=== PATIENT | male | born 1950 | race Caucasian/White ===

== ENCOUNTER 2016-07-23 16:50 | Observation (INO) | payer MEDICARE, OTHER ==
[~2016-07-23] VITALS: Ht 170.2 cm; Wt 86.0 kg
--- NOTE | ~2016-07-23 | CO ---
ADMIT: 07/23/2016 RM/LOC: 506 [facility] MR#: [id number] [address] [address] ISH GARCIA [address] [place] [address] Consultation SEX: M AGE: 66 : 1950 DATE OF CONSULTATION: 07/24/2016 ATTENDING PHYSICIAN: Claudy Nava CONSULTING PHYSICIAN: Hank Cool MD ADDENDUM: This is an addendum to a consult note by Christian Horta. This is a pleasant patient, who is traveling back to [place] and had an episode of black tarry bowel movement. He is on Xarelto, has not really had any upper abdominal pain, has not had any hematemesis, but I was asked to see him for possible endoscopy. On exam, his abdomen is soft. It is nontender. ASSESSMENT: Anemia and melena, probable upper GI bleed. PLAN: I have recommended proceeding with EGD. I have gone through risks and benefits of this procedure. He understands and agrees to proceed. Hank Cool MD/ aly JOB #: [id number] CC: Claudy Nava, Attending Physician Claudy Nava, Family Physician
--- NOTE | 2016-07-24 12:39 | CO ---
ADMIT: 07/23/2016 RM/LOC: 506 [facility] MR#: [id number] 2620 [facility] [address] [place] [id number] ISH GARCIA [address] [place] [address] Consultation SEX: M AGE: 66 : 1950 DATE OF CONSULTATION: 07/24/2016 ATTENDING PHYSICIAN: Claudy Nava CONSULTING PHYSICIAN: Jassi Schulz MD REASON FOR CONSULTATION: Melenic stools. HISTORY OF PRESENT ILLNESS: Ish is a very pleasant 66-year-old male, who woke up yesterday morning and noticed very black loose stools. He denies ever having any prior events like this before. He does have some mild abdominal pain, more located in the epigastric region. He denies any nausea, vomiting, hematemesis, diarrhea, or constipation. He does have some lightheadedness when he goes from sitting to a standing position, but denies any shortness of breath or weakness. Of note, the patient does take Xarelto for AFib and has been taking Aleve for the last about 6 weeks for generalized arthralgias. PAST MEDICAL HISTORY: Significant for type 2 diabetes, AFib, hypertension, and neuropathy. PAST SURGICAL HISTORY: 1. No prior EGDs, last colonoscopy was about 6 years ago and they had noticed diverticulosis. 2. Carpal tunnel syndrome. 3. Left shoulder surgery. 4. Cataracts. 5. Lap missy. ALLERGIES: VICODIN. MEDICATIONS: Well documented in chart. FAMILY HISTORY: Noncontributory. SOCIAL HISTORY: The patient is an alcohol user, drinks about a glass or 2 of wine a day. He denies any tobacco or illicit drug use. REVIEW OF SYSTEMS: CONSTITUTIONAL: The patient denies any fever, chills, or night sweats. The rest of a comprehensive 10-point review of systems was performed and all other systems are negative. PHYSICAL EXAMINATION: GENERAL: The patient is in no acute distress. He is alert and oriented. HEENT: Head is normocephalic and atraumatic. EOMS are intact. Conjunctivae free of icterus, erythema, or pallor. Pinnae, free of deformities. Nose, midline. No tracheal deviation. NECK: Supple. SKIN: Negative for jaundice, clubbing, edema, pallor, or cyanosis. ADMIT: 07/23/2016 RM/LOC: 506 [facility] MR#: [id number] [address] [address] ISH GARCIA [address] [place] [address] Consultation SEX: M AGE: 66 : 1950 LUNGS: Normal respiratory effort. HEART: Distal pulses intact. Regular rate and rhythm. ABDOMEN: Soft, nondistended, mild tenderness in epigastric region. NEURO: Grossly intact. LABORATORY DATA: Hemoglobin is 8. ASSESSMENT: Upper gastrointestinal bleed. PLAN: The plan is to have the patient undergo EGD today, performed by Dr. Schulz or one of the other providers whoever is available 1st. I discussed the risks, alternatives, benefits, and complications of EGD with the patient to which he has agreement of this plan, had all of his questions answered and would like to proceed. I have him on surgery schedule and we will get his consent and hopefully get this done this morning. KEMAL Rosales / Jassi Schulz MD / aly JOB #: [id number] CC: Claudy Nava, Attending Physician Claudy Nava, Family Physician
--- NOTE | 2016-07-26 07:15 | HP ---
ADMIT: 07/23/2016 RM/LOC: 506 [facility] MR#: [id number] 2620 [facility] [address] [place] [id number] JO[address] [place] [address] History and Physical SEX: M AGE: 66 : 1950 DATE OF SERVICE: CHIEF COMPLAINT: Abdominal pain and melena. HISTORY OF PRESENT ILLNESS: The patient is a fantastic 66-year-old gentleman, who was traveling across country from [facility] back to their home in [place], who over the last day has had melena. It started early this morning. Had at least 4 enlarged bowel movements. Dark, tarry. Some epigastric abdominal pain. Prior to this, he had been feeling quite well other than some sciatica he has been suffering with for the last couple of months. This has much improved. However, he had been taking quite a bit of Aleve for this. Was taking misoprostol for GI protection. Otherwise, no shortness of breath. No dizziness. No lightheadedness. He had been eating and drinking well. He had been out hiking recently in [place] without any chest pain or shortness of breath issues. Sounds like he is normally pretty healthy carlos otherwise. He is on Xarelto for chronic atrial fibrillation. No bleeding issues in the past. No history of ulcerative disease. Last C scope was about 5 years ago. PAST MEDICAL HISTORY: 1. Type 2 diabetes, on oral agents. 2. Atrial fibrillation on chronic anticoagulation. 3. Hypertension. 4. History of shoulder surgery. 5. Carpal tunnel surgery. FAMILY HISTORY: Negative for colon cancer. SOCIAL HISTORY: Former smoker 40 years ago. Drinks about one drink a day. . at bedside. 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 REVIEW OF SYSTEMS: As per HPI. Otherwise, completely reviewed and negative. MEDICATIONS: He is on: 1. Gabapentin 100 mg b.i.d. and 300 mg at bedtime. 2. Diltiazem 120 mg p.o. daily. 3. Misoprostol 100 mcg p.o. q.i.d. 4. Xarelto 20 mg daily. 5. Losartan/hydrochlorothiazide 100/25, one p.o. daily. 6. Simvastatin 20 mg daily. 7. Metformin ER 1000 mg p.o. daily. 8. Aleve 2 tabs daily. 9. Fish oil. 10.Magnesium. 11.Multivitamin. 12.CoQ10. 13.Vitamin E. 14.Glucosamine supplements. ADMIT: 07/23/2016 RM/LOC: 506 [facility] MR#: [id number] [address] [address] [address] G[address]IA [address] [place] [address] History and Physical SEX: M AGE: 66 : 1950 PHYSICAL EXAMINATION: VITAL SIGNS: Blood pressure 132/72, pulse 75, O2 saturation 97% on room air, afebrile. GENERAL: He is alert and oriented x3. No acute distress. Very pleasant gentleman. HEENT: Normocephalic, atraumatic. Pupils equal, round, and reactive to light and accommodation. Extraocular muscles intact. Moist mucous membranes. NECK: No lymphadenopathy. Soft, supple. Trachea midline. LUNGS: Clear to auscultation bilaterally. No wheezes, rales, or rhonchi. HEART: Regular rate and rhythm. No murmurs, rubs, or gallops. ABDOMEN: Soft. Mild epigastric tenderness. No guarding. No rigidity. Bowel sounds present. EXTREMITIES: No cyanosis, clubbing, or edema. MUSCULOSKELETAL: 5/5 strength in all 4 extremities. NEUROLOGICAL: No focal deficits noted. Cranial nerves II through XII are grossly intact. SKIN: No rashes noted. PSYCHIATRIC: Very pleasant gentleman. LABORATORY DATA: Hemoglobin is 10.1, CO2 is 23, white count 7.9, creatinine 0.8. AST and ALT within normal limits. Bilirubin is 0.3. ASSESSMENT: 1. Gastrointestinal bleed, presumed upper gastrointestinal bleed. 2. Diabetes type 2. 3. Atrial fibrillation. 4. Hypertension. PLAN: At this point in time, we will trend his hemoglobin. He has already been typed and crossed. Transfuse as needed. We will finish off 80 mg Protonix IV. He has already received 40 mg IV now. We will start him on a drip. We will have General Surgery see him. I discussed this case with Dr. Schulz cosmetic sales consultant, on-call surgeon. Tentatively planning for EGD tomorrow pending his course. Obviously, we are going to be holding his Xarelto. We will hold some of his other nonessential medications. We will continue his diltiazem and his blood pressure medication currently. The patient is agreeable to plan overall. Claudy Nava MD/ aly JOB #: [id number] CC: Claudy Nava, Attending Physician Claudy Nava, Family Physician
--- NOTE | 2016-07-27 07:45 | DS ---
ADMIT: 07/23/2016 RM/LOC: 506 [facility] MR#: [id number] [address] [address] [address] [place] [address] Discharge Summary SEX: M AGE: 66 : 1950 ADMISSION DATE: 07/23/2016 DISCHARGE DATE: 07/25/2016 CONSULTATIONS: General Surgery. PROCEDURES: Underwent upper endoscopy on 07/24/2016. FINAL DIAGNOSES: 1. Acute upper GI (gastrointestinal) bleed. 2. Diabetes type 2. 3. Atrial fibrillation. 4. Hypertension. 5. Recent sciatica. REASON FOR ADMISSION: The patient is an extremely pleasant, 66-year-old gentleman traveling across [facility] back home to [place], who experienced less than 24 hours of severe bouts of melena, GI bleeding. He had been on high doses of NSAIDs as well as Xarelto recently. Presented to the emergency room. Admitted for further stabilization. HOSPITAL COURSE: The patient was admitted. His anticoagulants held. Placed on a PPI bolus and then drip. Serial hemoglobin was monitored. They got as low as 8.1. No transfusion needed. He did get moderately symptomatic to his anemia. Underwent above-mentioned EGD. Showed very mild punctate gastritis in the gastric fundus. Otherwise, normal and without acute areas of active bleeding. Duodenum appeared normal. Patient able to tolerate general diet well prior to discharge. His melena had essentially resolved prior to discharge. He is felt safe and stable for discharge to home. Hemoglobin at time of discharge is 8.4. ADMIT: 07/23/2016 RM/LOC: 506 [facility] MR#: [id number] 2620 [facility] [address] [place] [id number] RADHA ISH F [address] [place] [place] [address] Discharge Summary SEX: M AGE: 66 : 1950 DISCHARGE INSTRUCTIONS: He will be discharged to home. For discharge meds, please see discharge MAR which I reviewed. Essentially, he will be on his home medications other than off of his Xarelto. He will be put on Protonix 40 mg daily. He will follow up with his primary care provider in the next 7-10 days. Follow-up hemoglobin at that time. May not need lower endoscopy in the future should this recur, obviously it will. He had a relatively recent lower endoscopy in the past. Claudy Nava MD/ ajf JOB #: [id number] CC: Claudy Nava MD, Attending Physician Claudy Nava MD, Family Physician Liam Pineda MD [address] [id number]
[2016-07-27] MEDS ORDERED: ZOCOR DPS20 MG PO (11:45)
[2016-07-27] MEDS ORDERED: NEURONTIN DPS100 MG PO ×2 (11:46)
[2016-07-27] MEDS ORDERED: CARDIZEM CD DP120 MG PO (11:46)
[2016-07-27] MEDS ORDERED: GLUCOPHAGE XR500 MG PO (11:46)
[2016-07-27] MEDS ORDERED: LOSARTAN-HCTZ1 EAC1 PO (11:47)
[2016-07-27] MEDS ORDERED: OMEGA-3 DPS1000 MG PO (11:47)
[2016-07-27] MEDS ORDERED: VITAMIN D31000 UNIT PO (11:48)
[2016-07-27] MEDS ORDERED: COQ-10100 MG PO (11:48)
[2016-07-27] MEDS ORDERED: MAGNESIUM250 MG PO (11:48)
[2016-07-27] MEDS ORDERED: GLUCOSAMINE H1500 MG PO (11:49)
[2016-07-27] MEDS ORDERED: THERA1 EACH PO (11:50)
[2016-07-27] MEDS ORDERED: [UNRECOGNIZED DRUG - OTHER] TP (11:51)
[2016-07-27] MEDS ORDERED: PROTONIX40 MG PO (11:51)
--- NOTE | 2016-07-28 08:55 | CO ---
ADMIT: 07/23/2016 RM/LOC: 506 [facility] MR#: [id number] [address] [address] ISH GARCIA [address] [place] [address] Consultation Report SEX: M AGE: 66 : 1950 Corrected: 07/25/2016 0542 njv DATE OF CONSULTATION: 07/24/2016 ATTENDING PHYSICIAN: Claudy Nava CONSULTING PHYSICIAN: Jassi Schulz MD HISTORY OF PRESENT ILLNESS: The patient is very pleasant 66-year-old male, traveling through [place] from [place], who has had some abdominal epigastric discomfort and black stools with some lightheadedness, is on Xarelto for atrial fibrillation, was found to be anemic. He was admitted for IV fluid resuscitation, observation, and I am asked to see for upper endoscopy evaluation. His past medical history, surgical history, allergies, medications, family history, social history are well documented per Christian Horta's note, as well as review of systems. PHYSICAL EXAMINATION: VITAL SIGNS: Afebrile. HEART: Regular. LUNGS: Clear. ABDOMEN: Soft, nondistended. Tender in the epigastrium. EXTREMITIES: No peripheral edema. NEUROLOGIC: No focal neurologic deficits. ASSESSMENT AND PLAN: The patient is a 66-year-old with epigastric pain, who has been on nonsteroidal medicines and is noted to have black stools and anemia. The plan is for upper endoscopy examination. Jassi Schulz MD/ aly JOB #: [id number] CC: Claudy Nava, Attending Physician Claudy Nava, Family Physician Corrected: 07/25/2016 0542 njv
--- NOTE | 2016-08-06 10:45 | OR ---
ADMIT: 07/23/2016 RM/LOC: 506 [facility] MR#: [id number] 2620 [facility] [address] [place] [id number] ISH GARCIA [address] [place] [address] Operative/Delivery Room Report SEX: M AGE: 66 : 1950 SURGERY DATE: 07/24/2016 SURGEON: Hank Cool MD PREOPERATIVE DIAGNOSIS: Probable upper gastrointestinal bleed with melena and anemia. POSTOPERATIVE DIAGNOSIS: Very mild punctate gastritis in the gastric fundus. Otherwise, normal appearing upper endoscopy. PROCEDURE PERFORMED: EGD. ANESTHESIA: Sedation. ESTIMATED BLOOD LOSS: None. DESCRIPTION OF PROCEDURE: After appropriate informed consent was obtained, the patient was brought to the endoscopy suite. IV sedation was provided. A well-lubricated endoscope was introduced and passed down the esophagus. The entire esophageal mucosa appeared normal. Really no evidence of reflux changes. No hiatal hernia. The scope was advanced in the stomach. In the gastric fundus, he had a three to four small areas of punctate inflammation and erythema, but no evidence of any ulceration or any active bleeding. The gastric antrum appeared normal. Pylorus was intubated. Duodenal bulb, 2nd and 3rd portions of the duodenum appeared normal. The scope was then pulled back into the stomach, retroflexed and again on retroflexed view, I could see these three to four small areas of punctate inflammation, really no hiatal hernia from below. No proximal gastritis otherwise. The stomach was then deflated, and the scope was withdrawn without apparent complications. The patient tolerated the procedure well, and was taken to the recovery room in stable condition. Hank Cool MD/ aly JOB #: [id number] CC: Claudy Nava, Attending Physician Claudy J Nava, Family Physician
--- NOTE | 2016-08-23 21:14 | ER ---
ADMIT: 07/23/2016 RM/LOC: 506 [facility] MR#: [id number] 2620 [facility] [address] [place] [id number] ISH GARCIA [address] [facility] [place] [address] Emergency Room Report SEX: M AGE: 66 : 1950 DATE: 07/23/2016 HISTORY OF PRESENT ILLNESS: A 66-year-old gentleman traveling from [place] back to [place], started having dark tarry stool today. He is on Xarelto for atrial fib. He has not experienced anything like this in the past. He has had a colonoscopy 5 years ago, which was found to have diverticula and may be some polyps. He was uncertain about that, however. Rates just a lower quadrant abdominal pain at 1 to 2/10, was eating without an duress or difficulty, had formed brown colored stools today. Denies lightheadedness or dizziness. No chest pain or palpitations. PAST MEDICAL HISTORY: Hypertension, diabetes, and atrial fib. PHYSICAL EXAMINATION: GENERAL: Reveals a 66-year-old gentleman, in no acute distress. HEENT: Normocephalic, atraumatic. Pupils are equal and reactive. LUNGS: Clear to auscultation. CARDIOVASCULAR: Regular rate and rhythm. ABDOMEN: Soft, nontender, with positive bowel sounds. No guarding or rebound. Mild tenderness in the left lower quadrant. EXTREMITIES: Unremarkable. PERTINENT LABORATORY DATA: Hemoglobin 10.1. Electrolytes were significant for glucose of 133 and albumin of 3.4. He was typed and screened, given IV fluids. He did have 1 maroon colored stool in the Emergency Department, a small amount. The patient is being admitted with a GI bleed. He was given Protonix as well in the Emergency Department. Jeffrey Levi MD/ aly JOB #: [id number] CC: Claudy Nava MD, Attending Physician Claudy Nava MD, Family Physician
== END 2016-07-25 14:30 | disposition home or self-care (01) ==
LOC: ER 16:50 → 5MS 19:15
PROVIDERS: ADMIT Internal Medicine
PROC: 0DJ08ZZ Inspection of Upper Intestinal Tract, Via Natural or Artificial Opening Endoscopic (ICD-10-PCS; principal; 2016-07-24)
DX: K29.70 Gastritis, unspecified, without bleeding (principal); E11.9 Type 2 diabetes mellitus without complications; I48.91 Unspecified atrial fibrillation; G47.30 Sleep apnea, unspecified; I10 Essential (primary) hypertension; Z90.49 Acquired absence of other specified parts of digestive tract; Z98.49 Cataract extraction status, unspecified eye; Z98.890 Other specified postprocedural states; Z79.899 Other long term (current) drug therapy; Z88.6 Allergy status to analgesic agent